=== PATIENT | male | born 1985 | race Caucasian/White ===

== ENCOUNTER 2017-01-16 11:52 | Emergency (ER) | payer OTHER ==
[2017-01-16 11:55] VITALS: BP 100/58; PULSE 83; RESP 20; O2SAT 100
[2017-01-16] MEDS ORDERED: Bupivacaine 0.5% 50 mL Inj INFILTRATE ONE (12:00)
[2017-01-16] MEDS ORDERED: TdaP Vaccine 0.5 mL Inj IM ONE (12:20)
--- NOTE | 2017-01-16 12:31 | ED.REPORT ---
HPI-Extremity Problem Upper Date of Service Jan 16, 2017 ED Provider: Chau Parada PA-C Klaus is otherwise healthy 32-year-old male presenting with chief complaint of a smashed left pinky. Patient reports that he had his left fifth finger slammed in a heavy metal door. Complains of deformity, pain. Denies comorbidities such as diabetes, HIV, immunosuppressive drugs. He is unsure of his tetanus status. Patient is left-handed. Nursing Notes Stated Complaint: LEFT SMASHED PINKY Chief Complaint: Extremity Trauma Nursing Notes Reviewed: Yes Allergies: Coded Allergies: No Known Allergies (Unverified , 01/16/17) Scheduled Cephalexin (Cephalexin) 500 Mg Tablet 500 MG PO QID Sulfamethoxazole/Trimeth 800-160 mg (Bactrim DS) 1 Each Tablet 1 TABLET PO BID Scheduled PRN oxyCODONE (oxyCODONE) 5 Mg Tablet 5 MG PO Q4H PRN PRN For Pain General Time Seen by MD: 11:59 Chief Complaint Other (finger smashed) Past Medical History Past Medical History Denies Review of Systems Review of Systems Note: Negative unless stated otherwise in history of present illness Physical Exam General: Well appearing, well developed, well nourished, no acute distress. Left fifth digit: Extremely deep laceration and deformity at the DIP joint, with the distal phalange displaced to the radial aspect at approximately 90. Left hand: Radial pulses 2+, brisk capillary refill sensation and strength and motion intact in digits 1 through 4. Head: Atraumatic, normocephalic. Eyes: No scleral icterus or injection. No discharge. Vision grossly intact. ENT: Voice clear, hearing grossly intact. Respiratory: No respiratory distress, no increased work of breathing. Speaks in complete sentences. Skin: Warm and dry. Neurological: Grossly nonfocal. Psychological: alert and oriented. Speech appropriate, linear and logical. Behavior appropriate. Initial Vital Signs Vital Signs (First) Date Time Temp Pulse Resp B/P Pulse Ox O2 Delivery O2 Flow Rate FiO2 01/16/17 11:55 36.6 83 20 100/58 100 Room Air Normal Interpretation & Diagnostics X-Ray Interpretation Xray Interpretation: PROCEDURE: X-RAY FINGERS, TWO VIEWS INDICATIONS: CONTUSION, LAC LEFT 5TH FINGER IMPRESSION: 1. Dislocation of the distal interphalangeal joint of the left 5th digit. 2. Probable subtle fractures involving the head of the middle phalanx and base of the proximal phalanx of the 5th digit. No large fracture. 3. Punctate radiopaque foreign bodies at the laceration site. No large foreign bodies. Interpretation / Wet Read by: Interpret - Radiologist, Interp - P Procedures Laceration Management Procedure Performed by: Allied health pract Consent / Setup / Site Prep: Consent from patient, Hand hygiene observed, Stand sterile technique Wound Length: 5 cm Local Anesthesia: Bupivacaine 0.5% Digital Block: Yes Digit Involved: Little finger left Repair Skin: Nylon (5-0) # Sutures - Skin: 7 Closure Layers: 1 Suture Technique: Mattress Post-Procedure / Complications: Antibiotic oint applied, Dressing applied ( Xeroform, nonadherent gauze, ulnar gutter splint), No complications, Condition improved, Tolerated procedure well, Patient stable Re-Eval/Medical Decision Med Decision/Clinical Course Otherwise healthy 32-year-old male presents the chief complaint of smashed left pinky. Reports was slammed in a heavy metal door. Complains of deformity, pain. Physical examination the distal phalanx of the left fifth digit is severely displaced with a deep laceration. X-ray reveals possible fractures to the middle phalanx as well as punctate foreign bodies. I discussed the case with Dr. Jackson, who met with and examine the patient. He recommends 1 g Ancef IV, extensive irrigation, loose approximation, immobilization, re-x-ray, consultation with hand surgery. Anesthesia is obtained with a digital block using 5 mL of bupivacaine 0.5%. The hand is soaked in warm water and Betadine for approximately 15 minutes, irrigated with copious tap water for 5 minutes, cleansed with chlorhexidine, pressure irrigation via syringe with sterile normal saline. It was meticulously removed with tweezers by tractor technician. The wound was scrubbed with chlorhexidine brush. I reduced the dislocation and closed the wound loosely with 7 horizontal mattress sutures of 5-0 nylon. Placed in an ulnar gutter splint by tractor technician, inspected by me to confirm circulation, sensation. Postreduction x-rays are taken which reveal a chip fracture and close to anatomical position of the distal phalanx. Discussed the case with Dr. Crump, who advised Bactrim and Keflex be prescribed and that the patient be seen in 2 days at her office. We contacted her office, they will contact the patient to make arrangements. Patient is discharged to home with instructions for over-the -counter analgesia as well as a small amount of oxycodone to supplement with precautions. Tetanus is updated. Provided emergency return precautions. Patient verbalizes understanding of and consent to the plan. Consultation : Referral / Consult Name: Alessio Crump MD Call Returned at: 16:03 Note: Dr. Crump recommends prescribing Keflex and Bactrim. She will see the patient in office on . She has asked us to contact her office to make arrangements. Discharge & Departure Impression: Primary Impression: Phalanx, distal fracture of finger Encounter type: initial encounter Finger: little finger Fracture type: open Fracture alignment: displaced Laterality: left Qualified Code: S62.637B - Displaced fracture of distal phalanx of left little finger, initial encounter for open fracture Disposition: Home Discharge Condition All VS Reviewed: Yes Condition: Stable Patient Instructions: Splint Care (ED) Additional Instructions: Evaluation for a finger injury in the emergency department consists of interview , physical examination and x-rays all of which clears to conclude the obvious, that you fractured your left little finger. We have updated your tetanus shot and given a dose of IV antibiotics. Here in the emergency department we have cleaned the wound, reduced the fracture , closed the laceration with sutures, dressed with antibiotic ointment and gauze and a splint. Keep the splint on and dry until this is evaluated by an orthopedic surgeon. I discussed the case with Dr. Crump, our orthopedic surgeon. She can see you in clinic on . I suggest to contact her office to confirm this. She has asked that I provide a prescription for Keflex 500 mg be taken 4 times a day for the next week. I also prescribed Bactrim DS to be taken twice a day for the next week. The pain is best treated with 500 mg of naproxen (Aleve) every 12 hours, or 1000 mg of acetaminophen (Tylenol) every 6 hours. These drugs can be taken at the same time for more severe pain. I will write a prescription for a small amount of oxycodone to be taken every 4- 6 hours for pain not controlled by these other medications. Please do not drive or drink alcohol within 4 hours of taking this medication. Return to the emergency department for any new or worsening symptoms including increasing pain, fever, feeling ill. Referrals: Alessio Crump MD EDSupervising Provider for APC: Jayjay Jackson MD Attending Statement I saw and examined this patient personally. I have reviewed Mr. Parada's documentation and agree with his assessment and plan. copies to: Alessio Crump MD, Seth PA-C Jan 16, 2017 12:31 Jayjay Jackson MD Jan 16, 2017 17:31
[2017-01-16] MEDS ORDERED: CeFAZolin Inj 1 GM in IV Premix 1 EACH IV ONE (12:35)
--- NOTE | 2017-01-16 12:38 | DRSVH ---
PROCEDURE: X-RAY FINGERS, TWO VIEWS INDICATIONS: CONTUSION, LAC LEFT 5TH FINGER TECHNIQUE: AP hand, 2 views of the 5th finger(s) acquired. COMPARISON: None. FINDINGS: Bones: The distal phalanx of the 5th left digit is dislocated radially. There may be subtle fracture lines at the distal interphalangeal joint of the 5th left digit. No large displaced fracture is deborah ntified. Otherwise, the remainder of the bones and joints of the left hand are intact and within nor mal limits. No suspicious osseous lesions are present. Soft tissues: Laceration and soft tissue swelling of the 5th digit is present at the distal interphal angeal joint. Punctate radiopaque foreign bodies are present. No large radiopaque foreign bodies ar e identified. The soft tissues of the left hand are otherwise unremarkable. IMPRESSION: 1. Dislocation of the distal interphalangeal joint of the left 5th digit. 2. Probable subtle fractures involving the head of the middle phalanx and base of the proximal phala nx of the 5th digit. No large fracture. 3. Punctate radiopaque foreign bodies at the laceration site. No large foreign bodies. Dictated by: Ra Rome M.D. on 01/16/2017 at 11:33 Approved by: Ra Rome M.D. on 01/16/2017 at 11:36
--- NOTE | 2017-01-16 15:51 | DRSVH ---
PROCEDURE: X-RAY FINGERS, TWO VIEWS INDICATIONS: post reduction of fifth distal phalanx TECHNIQUE: AP hand, 2 views of the fifth finger(s) acquired. COMPARISON: [facility], CR, XR FINGER(S) LT 2VW, 01/16/2017, 12:02. FINDINGS: Bones: There has been interval cast placement with reapproximation of fracture distal phalanx with go od anatomic alignment. Fracture fragment is noted adjacent to the DIP joint. Soft tissues: No suspicious soft tissue calcifications. IMPRESSION: Post reduction of fifth distal phalanx fracture. Dictated by: Lory Biswas M.D. on 01/16/2017 at 15:48 Approved by: Lory Biswas M.D. on 01/16/2017 at 15:50
[2017-01-16] MEDS ORDERED: SULF1TAB7 PO (16:18)
[2017-01-16] MEDS ORDERED: CEPH500T PO (16:18)
[2017-01-16] MEDS ORDERED: OXYC5TAB72 PO (16:18)
[2017-01-16 16:20] VITALS: BP 121/69; PULSE 68; RESP 14; O2SAT 99
== END 2017-01-16 16:40 | disposition home or self-care (01) ==
LOC: SED 11:52
DX: S62.637B Displaced fracture of distal phalanx of left little finger, initial encounter for open fracture (principal); W23.0XXA Caught, crushed, jammed, or pinched between moving objects, initial encounter; Y93.89 Activity, other specified; Y99.0 Civilian activity done for income or pay; Y92.59 Other trade areas as the place of occurrence of the external cause; Z87.891 Personal history of nicotine dependence
CPT/HCPCS: 12002; 26725; 73140; 90471; 90715; 96365; 99284; J0690